=== PATIENT | female | born 2005 | race Caucasian/White ===

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

== ENCOUNTER 2023-01-14 13:35 | Outpatient (CLI) | payer BC ==
[~2023-01-14] VITALS: Ht 152.4 cm; Wt 50.8 kg
[2023-01-14 13:35] VITALS: BP 117/61; O2SAT 100
[~2023-01-14 13:35] MED LIST changes: -ACETAMINOPHEN 650MG PO PRIOR TO INFUSION PO ONE; -CETIRIZINE (ZyrTEC) 10 MG TAB PO ONE; -INFLIXIMAB BIOSIMILAR 400 MG in NS 210 ML IV ONE; -NS 1,000 ML IV SCH
[2023-01-14] MEDS ORDERED: ACETAMINOPHEN 650MG PO PRIOR TO INFUSION PO ONE (13:55)
[2023-01-14] MEDS ORDERED: INFLIXIMAB BIOSIMILAR 400 MG in NS 210 ML IV ONE (13:55)
[2023-01-14] MEDS ORDERED: NS 1,000 ML IV SCH (13:55)
[2023-01-14 14:47] VITALS: BP 103/59; O2SAT 100
[2023-01-14 15:35] VITALS: BP 106/68; O2SAT 100
== END 2023-01-14 15:35 ==
LOC: M INFU 13:35
PROVIDERS: ATTEND Pediatrics
DX: K50.90 Crohn's disease, unspecified, without complications (principal)
CPT/HCPCS: 96413; Q5103

== ENCOUNTER 2023-05-06 13:30 | Outpatient (CLI) | payer BC ==
[~2023-05-06] VITALS: Ht 152.4 cm; Wt 50.9 kg
[2023-05-06 13:30] VITALS: BP 114/54; O2SAT 100
[2023-05-06] MEDS ORDERED: CETIRIZINE (ZyrTEC) 10 MG TAB PO ONE (14:00)
[2023-05-06] MEDS ORDERED: NS 1,000 ML IV SCH (14:00)
[2023-05-06] MEDS ORDERED: ACETAMINOPHEN 650MG PO PRIOR TO INFUSION PO ONE (14:00)
[2023-05-06] MEDS ORDERED: INFLIXIMAB BIOSIMILAR 400 MG in NS 210 ML IV ONE (14:00)
[2023-05-06 15:30] VITALS: BP 107/58; TEMP 97.6; O2SAT 100
[2023-05-06 16:10] VITALS: BP 99/63; TEMP 97.5; O2SAT 96
== END 2023-05-06 16:20 ==
LOC: M INFU 13:30
PROVIDERS: ATTEND Pediatrics
DX: N10 Acute pyelonephritis (principal)
CPT/HCPCS: 96413; Q5103

== ENCOUNTER → 2023-05-21 | Outpatient (CLI) | payer BC ==
[2023-05-21 16:31] LABS: BASO % 0.6 % (0.0-1.0); EOS # 0.1 10^3/uL (0.0-0.5); EOS % 1.6 % (0.0-3.0); HEMATOCRIT 42.4 % (36.0-47.0); LYMPH # 2.5 10^3/uL (1.5-5.0); LYMPH % 36.3 % (24.0-44.0); MEAN CORPUSCULAR HEMOGLOBIN 31.2 pg (27.0-33.0); MEAN CORPUSCULAR VOLUME 94.4 fl (80.0-96.0); MONO # 0.5 10^3/uL (0.0-0.8); MONO % 6.5 % (2.0-8.0); NEUTROPHILS # 3.8 10^3/uL (1.5-8.5); NEUTROPHILS % 54.7 % (36.0-66.0); PLATELET COUNT, AUTOMATED 275 10^3/uL (150-450); RED BLOOD COUNT 4.49 10^6/uL (4.00-5.40); WHITE BLOOD COUNT 6.9 10^3/uL (4.0-10.0)
[2023-05-21 16:51] LABS: C REACTIVE PROTEIN QUANTITATIV < 0.40 MG/DL (<1.0)
[2023-05-21 16:52] LABS: ALBUMIN 4.1 G/DL (3.2-5.2); ALKALINE PHOSPHATASE 66 U/L (46-116); ALT/SGPT 20 U/L (7.0-40); AST/SGOT 14 U/L (<34); BILIRUBIN,TOTAL 0.5 MG/DL (0.3-1.2); BLOOD UREA NITROGEN 18 MG/DL (9-23); CALCIUM LEVEL 9.7 MG/DL (8.5-10.1); CARBON DIOXIDE LEVEL 28 MMOL/L (20-31); CHLORIDE LEVEL 107 MMOL/L (98-107); CREATININE FOR GFR 0.61 MG/DL (0.55-1.30); GLUCOSE, FASTING 98 MG/DL (60-100); POTASSIUM SERUM 4.5 MMOL/L (3.5-5.1); SODIUM LEVEL 143 MMOL/L (136-145); TOTAL PROTEIN 7.5 G/DL (5.7-8.2)
[2023-05-21 17:03] LABS: ERYTHROCYTE SEDIMENTATION RATE 13 mm/hr (0-20)
== END ==
LOC: M PLALAB 13:41
PROVIDERS: ATTEND Pediatrics
DX: K52.9 Noninfective gastroenteritis and colitis, unspecified (principal)

== ENCOUNTER 2023-07-01 07:43 | Outpatient (CLI) | payer BC ==
[~2023-07-01 07:43] MED LIST changes: +ACETAMINOPHEN 650MG PO PRIOR TO INFUSION PO ONE; +INFLIXIMAB BIOSIMILAR 400 MG in NS 210 ML IV ONE; +NS 1,000 ML IV SCH
[2023-07-01 08:00] VITALS: BP 113/59; O2SAT 97
[2023-07-01] MEDS ORDERED: CETIRIZINE (ZyrTEC) 10 MG TAB PO ONE (08:05)
[2023-07-01 09:05] VITALS: BP 99/61; O2SAT 98
[2023-07-01 09:09] LABS: BASO # 0.1 10^3/uL (0.0-0.2); BASO % 0.8 % (0.0-1.0); EOS # 0.2 10^3/uL (0.0-0.5); EOS % 2.7 % (0.0-3.0); HEMATOCRIT 37.6 % (36.0-47.0); HEMOGLOBIN 12.7 g/dl (12.0-15.5); LYMPH # 2.9 10^3/uL (1.5-5.0); MEAN CORPUSCULAR HEMOGLOBIN 31.6 pg (27.0-33.0); MEAN CORPUSCULAR HGB CONC 33.8 g/dl (32.0-36.5); MEAN CORPUSCULAR VOLUME 93.5 fl (80.0-96.0); MONO # 0.5 10^3/uL (0.0-0.8); MONO % 8.1 % (2.0-8.0); NEUTROPHILS # 2.7 10^3/uL (1.5-8.5); NEUTROPHILS % 42.1 % (36.0-66.0); PLATELET COUNT, AUTOMATED 261 10^3/uL (150-450); RED BLOOD COUNT 4.02 10^6/uL (4.00-5.40); WHITE BLOOD COUNT 6.3 10^3/uL (4.0-10.0)
[2023-07-01 09:22] LABS: C REACTIVE PROTEIN QUANTITATIV < 0.40 MG/DL (<1.0)
[2023-07-01 09:23] LABS: ALBUMIN 3.7 G/DL (3.2-5.2); ALKALINE PHOSPHATASE 63 U/L (46-116); ALT/SGPT 15 U/L (7.0-40); AST/SGOT 12 U/L (<34); BILIRUBIN,TOTAL 0.5 MG/DL (0.3-1.2); BLOOD UREA NITROGEN 17 MG/DL (9-23); CARBON DIOXIDE LEVEL 23 MMOL/L (20-31); CHLORIDE LEVEL 107 MMOL/L (98-107); CREATININE FOR GFR 0.51 MG/DL (0.55-1.30); GLUCOSE, FASTING 98 MG/DL (60-100); POTASSIUM SERUM 4.3 MMOL/L (3.5-5.1); SODIUM LEVEL 136 MMOL/L (136-145); TOTAL PROTEIN 6.6 G/DL (5.7-8.2)
[2023-07-01 09:50] LABS: ERYTHROCYTE SEDIMENTATION RATE 10 mm/hr (0-20)
[2023-07-01 09:53] VITALS: BP 103/67; O2SAT 100
[2023-07-01 09:56] VITALS: BP 103/67; TEMP 36.6; O2SAT 100
[2023-07-01 10:00] VITALS: BP 107/56; O2SAT 100
== END 2023-07-01 10:00 ==
LOC: M INFU 07:43
PROVIDERS: ATTEND Pediatrics
DX: K50.90 Crohn's disease, unspecified, without complications (principal)
CPT/HCPCS: 36592; 80053; 80230; 82397; 85025; 85652; 86140; 96365; Q5103

== ENCOUNTER 2023-08-26 13:25 | Outpatient (CLI) | payer BC ==
[~2023-08-26] VITALS: Ht 152.4 cm; Wt 52.2 kg
[~2023-08-26 13:25] MED LIST changes: -ACETAMINOPHEN 650MG PO PRIOR TO INFUSION PO ONE; -INFLIXIMAB BIOSIMILAR 400 MG in NS 210 ML IV ONE; -NS 1,000 ML IV SCH
[2023-08-26] MEDS ORDERED: NS 1,000 ML IV SCH (13:30)
[2023-08-26 13:35] VITALS: BP 116/73; O2SAT 98
[2023-08-26] MEDS: ACETAMINOPHEN 650MG PO PRIOR TO INFUSION PO ONE (13:55)
[2023-08-26] MEDS: INFLIXIMAB BIOSIMILAR 400 MG in NS 210 ML IV ONE (14:22)
[2023-08-26 14:45] VITALS: BP 108/57; O2SAT 98
[2023-08-26 15:30] VITALS: BP 102/66; O2SAT 100
== END 2023-08-26 15:30 | disposition home or self-care (01) ==
LOC: M INFU 13:25
PROVIDERS: ATTEND Pediatrics
DX: K52.9 Noninfective gastroenteritis and colitis, unspecified (principal)
CPT/HCPCS: 96413; Q5103

== ENCOUNTER 2023-10-21 13:35 | Outpatient (CLI) | payer BC ==
[~2023-10-21] VITALS: Ht 152.4 cm; Wt 52.2 kg
[~2023-10-21 13:35] MED LIST changes: +NS 1,000 ML IV SCH
[2023-10-21 13:41] VITALS: BP 116/73; TEMP 97.2; O2SAT 100
[2023-10-21] MEDS: ACETAMINOPHEN 650MG PO PRIOR TO INFUSION PO ONE (13:41)
[2023-10-21] MEDS: INFLIXIMAB BIOSIMILAR 400 MG in NS 210 ML IV ONE (14:08)
[2023-10-21 14:28] VITALS: BP 108/62; TEMP 98; O2SAT 100
[2023-10-21 15:13] VITALS: BP 111/69; O2SAT 100
== END 2023-10-21 15:15 ==
LOC: M INFU 13:35
PROVIDERS: ATTEND Pediatrics
DX: K52.9 Noninfective gastroenteritis and colitis, unspecified (principal)
CPT/HCPCS: 96413; Q5103

== ENCOUNTER 2023-12-16 13:41 | Outpatient (CLI) | payer BC ==
[~2023-12-16] VITALS: Ht 152.4 cm; Wt 53.2 kg
[2023-12-16] MEDS: ACETAMINOPHEN 650MG PO PRIOR TO INFUSION PO ONE (13:55)
[2023-12-16 13:57] VITALS: BP 135/79; TEMP 98.9; O2SAT 18
[2023-12-16] MEDS ORDERED: INFLIXIMAB BIOSIMILAR 400 MG in NS 210 ML IV ONE (14:35)
[2023-12-16] MEDS: INFLIXIMAB BIOSIMILAR 400 MG in NS 210 ML IV ONE (14:40)
== END 2023-12-16 15:50 | disposition home or self-care (01) ==
LOC: M INFU 13:41
PROVIDERS: ATTEND Pediatrics
DX: K52.9 Noninfective gastroenteritis and colitis, unspecified (principal)
CPT/HCPCS: 96413; Q5103

== ENCOUNTER 2024-04-09 13:39 | Outpatient (CLI) | payer BC ==
[~2024-04-09] VITALS: Ht 152.4 cm; Wt 53.6 kg
[2024-04-09] MEDS: ACETAMINOPHEN 650MG PO PRIOR TO INFUSION PO ONE (13:58)
[2024-04-09] MEDS ORDERED: NS 1,000 ML IV SCH (14:00)
[2024-04-09 14:01] VITALS: BP 111/63; TEMP 98.2; O2SAT 98
[2024-04-09] MEDS: INFLIXIMAB BIOSIMILAR 400 MG in NS 210 ML IV ONE (14:31)
[2024-04-09 16:05] VITALS: BP 112/66; O2SAT 100
== END 2024-04-09 16:05 ==
LOC: M INFU 13:39
PROVIDERS: ATTEND Pediatrics
DX: K52.9 Noninfective gastroenteritis and colitis, unspecified (principal)
CPT/HCPCS: 96413; Q5103

== ENCOUNTER → 2024-04-09 | Outpatient (CLI) | payer BC ==
[~2024-04-09] MED LIST changes: -NS 1,000 ML IV SCH
[2024-04-09 16:05] LABS: BASO % 0.4 % (0.0-1.0); EOS # 0.1 10^3/uL (0.0-0.5); HEMATOCRIT 41.3 % (36.0-47.0); HEMOGLOBIN 13.7 g/dl (12.0-15.5); LYMPH # 2.9 10^3/uL (1.5-5.0); LYMPH % 39.9 % (24.0-44.0); MEAN CORPUSCULAR HEMOGLOBIN 31.5 pg (27.0-33.0); MEAN CORPUSCULAR HGB CONC 33.2 g/dl (32.0-36.5); MEAN CORPUSCULAR VOLUME 94.9 fl (80.0-96.0); MONO # 0.5 10^3/uL (0.0-0.8); MONO % 6.8 % (2.0-8.0); NEUTROPHILS # 3.8 10^3/uL (1.5-8.5); NEUTROPHILS % 51.5 % (36.0-66.0); PLATELET COUNT, AUTOMATED 261 10^3/uL (150-450); RED BLOOD COUNT 4.35 10^6/uL (4.00-5.40); WHITE BLOOD COUNT 7.3 10^3/uL (4.0-10.0)
[2024-04-09 16:12] LABS: ERYTHROCYTE SEDIMENTATION RATE 15 mm/hr (0-20)
[2024-04-09 16:20] LABS: C REACTIVE PROTEIN QUANTITATIV < 0.40 MG/DL (<1.0)
[2024-04-09 16:22] LABS: ALKALINE PHOSPHATASE 73 U/L (46-116); ALT/SGPT 14 U/L (7.0-40); AST/SGOT 12 U/L (<34); BILIRUBIN,TOTAL 0.8 MG/DL (0.3-1.2); BLOOD UREA NITROGEN 15 MG/DL (9-23); CALCIUM LEVEL 10.1 MG/DL (8.5-10.1); CARBON DIOXIDE LEVEL 27 MMOL/L (20-31); CHLORIDE LEVEL 108 MMOL/L (98-107); CREATININE FOR GFR 0.69 MG/DL (0.55-1.30); GLUCOSE, FASTING 79 MG/DL (60-100); POTASSIUM SERUM 5.1 MMOL/L (3.5-5.1); SODIUM LEVEL 141 MMOL/L (136-145); TOTAL PROTEIN 7.5 G/DL (5.7-8.2)
== END ==
LOC: M PLALAB 12:16
PROVIDERS: ATTEND Pediatrics
DX: K52.9 Noninfective gastroenteritis and colitis, unspecified (principal)

== ENCOUNTER 2024-06-04 14:00 | Outpatient (CLI) | payer BC ==
[~2024-06-04] VITALS: Ht 152.4 cm; Wt 54.0 kg
[2024-06-04 14:00] VITALS: BP 115/81; O2SAT 100
[~2024-06-04 14:00] MED LIST changes: +ACETAMINOPHEN 650MG PO PRIOR TO INFUSION PO ONE; +NS (Normal Saline) 0.9% 1,000 ML IV SCH
[2024-06-04] MEDS: INFLIXIMAB BIOSIMILAR 400 MG in NS 210 ML IV ONE (14:48)
[2024-06-04 15:54] VITALS: BP 111/70; O2SAT 100
== END 2024-06-04 15:55 ==
LOC: M INFU 14:00
PROVIDERS: ATTEND Pediatrics
DX: K50.90 Crohn's disease, unspecified, without complications (principal)
CPT/HCPCS: 96413; Q5103

== ENCOUNTER → 2024-08-10 | Outpatient (CLI) | payer BC ==
[~2024-08-10] VITALS: Ht 152.4 cm; Wt 52.0 kg
[~2024-08-10] MED LIST changes: -ACETAMINOPHEN 650MG PO PRIOR TO INFUSION PO ONE
[2024-08-10] MEDS: ACETAMINOPHEN 650MG PO PRIOR TO INFUSION PO ONE (14:00)
[2024-08-10 14:20] VITALS: BP 120/64; O2SAT 98
[2024-08-10] MEDS: INFLIXIMAB BIOSIMILAR 400 MG in NS 210 ML IV ONE (14:51)
[2024-08-10 15:48] VITALS: BP 116/73; TEMP 99.1; O2SAT 97
[2024-08-10 17:00] VITALS: BP 131/85; O2SAT 100
== END ==
LOC: M INFU 14:06
PROVIDERS: ATTEND Pediatrics
DX: K50.90 Crohn's disease, unspecified, without complications (principal)
CPT/HCPCS: 96413; 96415; Q5103

== ENCOUNTER 2024-10-05 14:00 | Outpatient (CLI) | payer BC ==
[~2024-10-05] VITALS: Ht 152.4 cm; Wt 52.2 kg
[2024-10-05 14:15] VITALS: BP 129/72; O2SAT 98
[2024-10-05] MEDS: ACETAMINOPHEN 650MG PO PRIOR TO INFUSION PO ONE (14:19)
[2024-10-05] MEDS: INFLIXIMAB BIOSIMILAR 400 MG in NS 210 ML IV ONE (14:54)
== END 2024-10-05 16:00 ==
LOC: M INFU 14:00
PROVIDERS: ATTEND Pediatrics
DX: K50.90 Crohn's disease, unspecified, without complications (principal)
CPT/HCPCS: 96413; Q5103

== ENCOUNTER → 2025-01-18 | Outpatient (CLI) | payer BC ==
[~2025-01-18] MED LIST changes: -NS (Normal Saline) 0.9% 1,000 ML IV SCH
[2025-01-18 14:44] LABS: IRON (FE) 37.0 UG/DL (50-170); MAGNESIUM LEVEL 1.9 MG/DL (1.8-2.4)
[2025-01-18 14:45] LABS: PERCENT SATURATION 11.2 % (13.2-45.0); TOTAL 25(OH) VITAMIN D 31.6 NG/ML (20.0-100.0)
[2025-01-18 14:47] LABS: VITAMIN B12 LEVEL 614.0 PG/ML (211-911)
[2025-01-21 07:02] LABS: ZINC PLASMA 74 mcg/dL (60-130)
== END ==
LOC: M LAB 13:20
PROVIDERS: ATTEND Internal Medicine
DX: K50.90 Crohn's disease, unspecified, without complications (principal)

== ENCOUNTER → 2025-01-18 | Outpatient (CLI) | payer BC ==
[2025-01-18 14:21] LABS: BASO # 0.0 10^3/uL (0.0-0.2); BASO % 0.3 % (0.0-1.0); EOS # 0.0 10^3/uL (0.0-0.5); EOS % 0.5 % (0.0-3.0); LYMPH # 2.1 10^3/uL (1.5-5.0); LYMPH % 33.9 % (24.0-44.0); MONO # 0.4 10^3/uL (0.0-0.8); MONO % 6.2 % (2.0-8.0); NEUTROPHILS # 3.7 10^3/uL (1.5-8.5); NEUTROPHILS % 58.8 % (36.0-66.0); PLATELET COUNT, AUTOMATED 265 10^3/uL (150-450)
[2025-01-18 15:01] LABS: ALT/SGPT 21 U/L (7.0-40); AST/SGOT 23 U/L (<34); CALCIUM LEVEL 9.2 MG/DL (8.5-10.1); CARBON DIOXIDE LEVEL 27 MMOL/L (20-31); CHLORIDE LEVEL 105 MMOL/L (98-107); CREATININE FOR GFR 0.68 MG/DL (0.55-1.30); GLOMERULAR FILTRATION RATE > 90.0 (>60); POTASSIUM SERUM 4.3 MMOL/L (3.5-5.1); SODIUM LEVEL 142 MMOL/L (136-145)
[2025-01-18 15:04] LABS: FREE T4 1.04 NG/DL (0.89-1.76)
== END ==
LOC: M LAB 13:07
PROVIDERS: ATTEND Nurse Practitioner Family
DX: Z00.00 Encounter for general adult medical examination without abnormal findings (principal); J02.9 Acute pharyngitis, unspecified

== ENCOUNTER 2025-01-25 13:31 | Outpatient (CLI) | payer BC ==
[~2025-01-25] VITALS: Ht 152.4 cm; Wt 53.2 kg
[~2025-01-25 13:31] MED LIST changes: +ACETAMINOPHEN 650MG PO PRIOR TO INFUSION PO ONE; +NS (Normal Saline) 0.9% 1,000 ML IV SCH
[2025-01-25] MEDS: INFLIXIMAB BIOSIMILAR 400 MG in NS 210 ML IV ONE (14:39)
== END 2025-01-25 15:49 | disposition home or self-care (01) ==
LOC: M INFU 13:31
PROVIDERS: ATTEND Nurse Practitioner Family
DX: K50.90 Crohn's disease, unspecified, without complications (principal)
CPT/HCPCS: 96413; Q5103

== ENCOUNTER 2025-03-22 11:31 | Outpatient (CLI) | payer BC ==
[~2025-03-22] VITALS: Ht 152.4 cm; Wt 53.2 kg
[2025-03-22 11:30] VITALS: BP 110/67; O2SAT 97
[2025-03-22] MEDS: INFLIXIMAB BIOSIMILAR 400 MG in NS 210 ML IV ONE (12:11)
[2025-03-22 13:15] VITALS: BP 120/76; O2SAT 99
== END 2025-03-22 13:15 | disposition home or self-care (01) ==
LOC: M INFU 11:31
PROVIDERS: ATTEND Nurse Practitioner Family
DX: K50.90 Crohn's disease, unspecified, without complications (principal)
CPT/HCPCS: 96413; Q5103

== ENCOUNTER → 2025-04-23 | Outpatient (CLI) | payer BC ==
[~2025-04-23] MED LIST changes: -ACETAMINOPHEN 650MG PO PRIOR TO INFUSION PO ONE; -NS (Normal Saline) 0.9% 1,000 ML IV SCH
[2025-04-23 15:21] LABS: BASO # 0.0 10^3/uL (0.0-0.2); BASO % 0.5 % (0.0-1.0); EOS # 0.1 10^3/uL (0.0-0.5); EOS % 1.3 % (0.0-3.0); LYMPH # 2.6 10^3/uL (1.5-5.0); LYMPH % 46.6 % (24.0-44.0); MONO # 0.4 10^3/uL (0.0-0.8); MONO % 7.6 % (2.0-8.0); NEUTROPHILS # 2.4 10^3/uL (1.5-8.5); NEUTROPHILS % 43.6 % (36.0-66.0); PLATELET COUNT, AUTOMATED 276 10^3/uL (150-450)
[2025-04-23 15:27] LABS: ALT/SGPT 19 U/L (7.0-40); AST/SGOT 21 U/L (<34); C REACTIVE PROTEIN QUANTITATIV < 0.50 MG/DL (<1.0); CALCIUM LEVEL 9.3 MG/DL (8.5-10.1); CARBON DIOXIDE LEVEL 27 MMOL/L (20-31); CHLORIDE LEVEL 104 MMOL/L (98-107); CREATININE FOR GFR 0.66 MG/DL (0.55-1.30); GLOMERULAR FILTRATION RATE > 90.0 (>60); POTASSIUM SERUM 4.2 MMOL/L (3.5-5.1); SODIUM LEVEL 140 MMOL/L (136-145)
== END ==
LOC: M PLALAB 13:01
PROVIDERS: ATTEND Internal Medicine
DX: K50.90 Crohn's disease, unspecified, without complications (principal)

== ENCOUNTER 2025-05-17 11:39 | Outpatient (CLI) | payer BC ==
[~2025-05-17] VITALS: Ht 152.4 cm; Wt 53.1 kg
[~2025-05-17 11:39] MED LIST changes: +NS (Normal Saline) 0.9% 1,000 ML IV SCH
[2025-05-17 11:45] VITALS: BP 112/65; O2SAT 100
[2025-05-17] MEDS: INFLIXIMAB BIOSIMILAR 400 MG in NS 210 ML IV ONE (12:34)
[2025-05-17] MEDS: ACETAMINOPHEN 650MG PO PRIOR TO INFUSION PO ONE (12:34)
[2025-05-17 13:45] VITALS: BP 104/67; O2SAT 100
== END 2025-05-17 13:50 | disposition home or self-care (01) ==
LOC: M INFU 11:39
PROVIDERS: ATTEND Nurse Practitioner Family
DX: K50.90 Crohn's disease, unspecified, without complications (principal)
CPT/HCPCS: 96413; Q5103